=== PATIENT | male | born 2000 | race Hispanic/Latino ===

== ENCOUNTER 2021-01-15 20:02 | Emergency (ER) | payer MEDICAID ==
[~2021-01-15 20:02] MED LIST: KEFLEX250 MG PO
[2021-01-15] MEDS ORDERED: KEFLEX500 MG PO (22:37)
[2021-01-15] MEDS ORDERED: PERCOCET 5/325M1 TAB PO (22:39)
[2021-01-15 23:08] VITALS: BP 118/70
== END 2021-01-15 23:08 | disposition home or self-care (01) | DRG 605 ==
LOC: ED 20:02
DX: S61.112A Laceration without foreign body of left thumb with damage to nail, initial encounter (principal); W22.8XXA Striking against or struck by other objects, initial encounter; Y93.9 Activity, unspecified; Y92.009 Unspecified place in unspecified non-institutional (private) residence as the place of occurrence of the external cause

== ENCOUNTER 2022-11-24 21:16 | Emergency (ER) | payer SELFPAY ==
[~2022-11-24] VITALS: Ht 157.5 cm; Wt 140.0 kg
[~2022-11-24 21:16] MED LIST changes: +KEFLEX500 MG PO; +PERCOCET 5/325M1 TAB PO
[2022-11-24 21:28] VITALS: BP 123/67
== END 2022-11-24 22:29 | disposition home or self-care (01) | DRG 605 ==
LOC: ED 21:16
DX: S61.213A Laceration without foreign body of left middle finger without damage to nail, initial encounter (principal); F17.200 Nicotine dependence, unspecified, uncomplicated; W23.1XXA Caught, crushed, jammed, or pinched between stationary objects, initial encounter; Y93.89 Activity, other specified; Y92.009 Unspecified place in unspecified non-institutional (private) residence as the place of occurrence of the external cause